=== PATIENT | female | born 1975 | race Caucasian/White ===

== ENCOUNTER 2017-02-17 10:21 | Emergency (ER) | payer OTHER ==
[~2017-02-17] VITALS: Ht 162.6 cm; Wt 90.7 kg
[2017-02-17 10:58] VITALS: BP 123/87
== END 2017-02-17 11:10 | disposition home or self-care (01) ==
LOC: ED 10:21
DX: M54.12 Radiculopathy, cervical region (principal); R51 Headache; G89.29 Other chronic pain; M50.90 Cervical disc disorder, unspecified, unspecified cervical region; R03.0 Elevated blood-pressure reading, without diagnosis of hypertension; Z85.038 Personal history of other malignant neoplasm of large intestine; Z88.5 Allergy status to narcotic agent